=== PATIENT | female | born 1975 | race Caucasian/White ===

== ENCOUNTER 2017-01-20 19:27 | Inpatient (IN) | payer OTHER ==
[~2017-01-20] VITALS: Ht 165.1 cm; Wt 59.7 kg
[2017-01-20 19:38] VITALS: BP 96/60; PULSE 113; RESP 14; TEMP 98.9; O2SAT 98
[2017-01-20] MEDS ORDERED: MORPHINE SULFATE 8 MG/ML INJ IV PUSH ONE (20:45)
[2017-01-20] MEDS ORDERED: ONDANSETRON HCL 4 MG/2 ML VIAL IV PUSH ONE (20:45)
[2017-01-20] MEDS ORDERED: SODIUM CHLOR 0.9% 1000 ML INJ 1,000 ML IV ONE (20:45)
--- NOTE | 2017-01-20 20:46 | PD ---
HPI Chief Complaint: Cold / Flu Symptoms Time Seen by Provider: 20:26 Travel History International Travel<30 days: No Contact w/Intl Traveler<30days: No Traveled to known affect area: No History of Present Illness HPI This 41-year-old female says she been sick for about a week. A week ago she had fairly diffuse myalgias and she started having some fever. She had cannabinoids diffuse headache. She went to an urgent care center. They did a swab for flu which was negative but they did prescribe Tamiflu and she has been taking that. She has one more dose of that to go. She went to her own doctor last Saturday because she is not feeling any better. He did lab work and told that she had a viral illness. They also told her that her liver function tests were elevated and she should not drink alcohol or take any Tylenol. She's been taking Aleve and ibuprofen. In the last few days he is still having some fever. She is having a headache in the right parietal area which is fairly well localized. Before the headache was fairly diffuse. She does not have any numbness or tingling. She does have some photophobia. She has not been having runny nose or cough. PFSH Social History Tobacco Use: No Allergies-Medications (Allergen,Severity, Reaction): Coded Allergies: No Known Allergies (Unverified , 01/20/17) Reported Meds & Prescriptions Reported Meds & Active Scripts Active Reported Advil (Ibuprofen) 200 Mg Tab 200 Mg PO Q6H Aleve (Naproxen Sodium) 220 Mg Tab 220 Mg PO BID PRN Tamiflu (Oseltamivir Phosphate) 75 Mg Cap 75 Mg PO BID Review of Systems General / Constitutional: Positive: Fever Eyes: No: Drainage HENT: No: Sore Throat, Rhinitis Cardiovascular: No: Chest Pain or Discomfort Respiratory: No: Cough, Shortness of Breath Gastrointestinal: No: Vomiting, Diarrhea Genitourinary: No: Dysuria, Nocturia Musculoskeletal: Positive: Myalgias Skin: No Rash, No Itching Neurologic: Positive: Headache, No: Weakness, Dizziness Psychiatric: No: Anxiety, Depression Endocrine: No: Heat Intolerance Hematologic/Lymphatic: No: Easy Bruising Physical Exam Narrative GENERAL: Well-developed female. She is complaining of headache. She arrives with the temperature of 101.5 SKIN: Focused skin assessment warm/dry. HEAD: Atraumatic. Normocephalic. There is no tenderness to palpation of the scalp EYES: Pupils equal and round. No scleral icterus. No injection or drainage. ENT: No nasal bleeding or discharge. Mucous membranes pink and moist. NECK: Trachea midline. No JVD. Her neck is supple CARDIOVASCULAR: Regular rate and rhythm. No murmur appreciated. RESPIRATORY: No accessory muscle use. Clear to auscultation. Breath sounds equal bilaterally. GASTROINTESTINAL: Abdomen soft, non-tender, nondistended. Hepatic and splenic margins not palpable. MUSCULOSKELETAL: No obvious deformities. No clubbing. No cyanosis. No edema. NEUROLOGICAL: Awake and alert. No obvious cranial nerve deficits. Motor grossly within normal limits. Normal speech. PSYCHIATRIC: Appropriate mood and affect; insight and judgment normal. Data Data Last Documented VS Vital Signs Date Time Temp Pulse Resp B/P Pulse Ox O2 Delivery O2 Flow Rate FiO2 01/20/17 23:21 94 16 94/54 97 Room Air 01/20/17 22:27 99.4 Orders Complete Blood Count With Diff (01/20/17 20:35) Comprehensive Metabolic Panel (01/20/17 20:35) Urinalysis - C+S If Indicated (01/20/17 20:35) Westergren Sedimentation Rate (01/20/17 20:35) Ct Brain W/O Iv Contrast(Rout) (01/20/17 20:35) Ed Urine Pregnancytest Poc (01/20/17 20:35) Sodium Chlor 0.9% 1000 Ml Inj (Ns 1000 M (01/20/17 20:45) Ondansetron Inj (Zofran Inj) (01/20/17 20:45) Morphine Inj (Morphine Inj) (01/20/17 20:45) Blood Culture (01/20/17 20:39) Lactic Acid Sepsis Protocol (01/20/17 20:39) Prothrombin Time / Inr (Pt) (01/20/17 20:46) Act Partial Throm Time (Ptt) (01/20/17 20:46) Potassium Chloride (Kcl) (01/20/17 21:15) Lorazepam Inj (Ativan Inj) (01/20/17 22:45) Csf Cell Count + Differential (01/20/17 22:46) Csf Culture And Gram Stain (01/20/17 22:46) Glucose, Csf (01/20/17 22:46) Total Protein, Csf (01/20/17 22:46) Ceftriaxone Inj (Rocephin Inj) (01/20/17 23:30) Admit Order (Ed Use Only) (01/20/17 23:26) Labs Laboratory Tests Test 01/20/17 01/20/17 20:50 22:45 White Blood Count 10.9 TH/MM3 Red Blood Count 3.96 MIL/MM3 Hemoglobin 11.8 GM/DL Hematocrit 34.9 % Mean Corpuscular Volume 88.2 FL Mean Corpuscular Hemoglobin 29.9 PG Mean Corpuscular Hemoglobin 33.9 % Concent Red Cell Distribution Width 13.7 % Platelet Count 251 TH/MM3 Mean Platelet Volume 8.8 FL Neutrophils (%) (Auto) 73.3 % Lymphocytes (%) (Auto) 14.9 % Monocytes (%) (Auto) 10.8 % Eosinophils (%) (Auto) 0.5 % Basophils (%) (Auto) 0.5 % Neutrophils # (Auto) 7.9 TH/MM3 Lymphocytes # (Auto) 1.6 TH/MM3 Monocytes # (Auto) 1.2 TH/MM3 Eosinophils # (Auto) 0.1 TH/MM3 Basophils # (Auto) 0.1 TH/MM3 CBC Comment AUTO DIFF Differential Comment AUTO DIFF CONFIRMED Platelet Estimate NORMAL Platelet Morphology Comment NORMAL Red Cell Morphology Comment NORMAL Erythrocyte Sedimentation Rate 48 mm/hr Prothrombin Time 11.6 SEC Prothromb Time International 1.0 RATIO Ratio Activated Partial 31.2 SEC Thromboplast Time Sodium Level 140 MEQ/L Potassium Level 3.2 MEQ/L Chloride Level 105 MEQ/L Carbon Dioxide Level 25.8 MEQ/L Anion Gap 9 MEQ/L Blood Urea Nitrogen 5 MG/DL Creatinine 0.53 MG/DL Estimat Glomerular Filtration 127 ML/MIN Rate Random Glucose 132 MG/DL Lactic Acid Level 0.9 mmol/L Calcium Level 8.4 MG/DL Total Bilirubin 0.6 MG/DL Aspartate Amino Transf 82 U/L (AST/SGOT) Alanine Aminotransferase 159 U/L (ALT/SGPT) Alkaline Phosphatase 251 U/L Total Protein 6.5 GM/DL Albumin 2.7 GM/DL Urine Color YELLOW Urine Turbidity SLIGHT Urine pH 5.5 Urine Specific Al[place]in 1.008 Urine Protein TRACE mg/dL Urine Glucose (UA) NEG mg/dL Urine Ketones TRACE mg/dL Urine Occult Blood TRACE Urine Nitrite POS Urine Bilirubin NEG Urine Leukocyte Esterase MOD Urine RBC 0-3 /hpf Urine WBC 25-49 /hpf Urine WBC Clumps OCC Urine Squamous Epithelial 0-5 /hpf Cells Urine Bacteria MANY /hpf Urine Mucus OCC /lpf Microscopic Urinalysis Comment CULTURE INDICATED MDM Medical Decision Making Medical Screen Exam Complete: Yes Emergency Medical Condition: Yes Medical Record Reviewed: Yes Differential Diagnosis Differential includes viral illness, meningitis, UTI Narrative Course Patient has been sick for a week and was continuing to have fever and fact her headache is getting more severe over. At this time. A CT scan of the head has been read as negative. Her white count is 10.9. Her sedimentation rate is elevated at 48. AST is 82 with ALT of 159 and albumin 2.7. With the patient having quite a severe headache and fever I felt that a lumbar puncture was indicated. This is been done and the fluid is grossly clear. Urinalysis does show infection. Patient has been given Rocephin possibility of meningitis and this should also cover urinary tract infection. Patient did have quite a severe headache associated with the fever so I felt an LP was indicated regardless of the presence of urinary tract infection Procedures Procedure Narrative Lumbar puncture was discussed with the patient and her . They're in agreement with proceeding with the procedure and signed consent. Patient was positioned in the left lateral recumbent position. The lumbar puncture was performed without complication. The fluid is grossly clear. The opening pressure was 220 Diagnosis Primary Impression: Severe headache Additional Impressions: Fever Urinary tract infection Damien Rivera MD January 20, 2017 20:46
[2017-01-20 20:55] VITALS: BP 115/58; PULSE 107; RESP 20; TEMP 101.5; O2SAT 98
[2017-01-20 21:04] VITALS: BP 101/51; PULSE 102; RESP 20; O2SAT 98
[2017-01-20 21:08] LABS: AUTOMATED NEUTROPHIL # 7.9 TH/MM3 (1.8-7.7); BASOPHIL # 0.1 TH/MM3 (0-0.2); BASOPHIL % 0.5 % (0.0-2.0); EOSINOPHIL # 0.1 TH/MM3 (0-0.4); EOSINOPHIL % 0.5 % (0.0-4.0); HEMATOCRIT 34.9 % (35.0-46.0); LYMPH % 14.9 % (9.0-44.0); LYMPHOCYTE # 1.6 TH/MM3 (1.0-4.8); MEAN CELL VOLUME 88.2 FL (80.0-100.0); MEAN CORPUSCULAR HEMOGLOBIN 29.9 PG (27.0-34.0); MEAN CORPUSCULAR HGB CONC 33.9 % (32.0-36.0); MONO % 10.8 % (0.0-8.0); NEUT % 73.3 % (16.0-70.0); PLATELET COUNT 251 TH/MM3 (150-450); RED BLOOD COUNT 3.96 MIL/MM3 (4.00-5.30); RED CELL DISTRIBUTION WIDTH 13.7 % (11.6-17.2); WHITE BLOOD COUNT 10.9 TH/MM3 (4.0-11.0)
[2017-01-20 21:09] LABS: CHLORIDE 105 MEQ/L (98-107); POTASSIUM 3.2 MEQ/L (3.5-5.1); SODIUM (NA) 140 MEQ/L (136-145)
[2017-01-20 21:12] LABS: ANION GAP 9 MEQ/L (5-15); BICARBONATE 25.8 MEQ/L (21.0-32.0)
[2017-01-20 21:13] LABS: BLOOD UREA NITROGEN 5 MG/DL (7-18)
[2017-01-20] MEDS ORDERED: POTASSIUM CHLORIDE 20 MEQ CONTROLLED RELEASE TAB PO ONE (21:15)
[2017-01-20 21:16] LABS: ALT (GPT) 159 U/L (10-53); AST (GOT) 82 U/L (15-37); GLOMERULAR FILTRATION RATE 127 ML/MIN (>89)
[2017-01-20 21:17] LABS: TOTAL BILIRUBIN ADULT 0.6 MG/DL (0.2-1.0)
[2017-01-20 21:18] LABS: ALKALINE PHOSPHATASE 251 U/L (45-117); HEMO FLAGS AUTO DIFF
[2017-01-20] MEDS ORDERED: OSEL75 PO (21:22)
[2017-01-20] MEDS ORDERED: NAPR220T95 PO (21:22)
[2017-01-20] MEDS ORDERED: IBUP-988 PO (21:22)
[2017-01-20 21:34] VITALS: BP 97/55; PULSE 98; RESP 20; O2SAT 98
[2017-01-20 21:45] LABS: PLATELET ESTIMATE SMEAR NORMAL (NORMAL); PLATELET MORPHOLOGY NORMAL (NORMAL); SCAN/DIFF AUTO DIFF CONFIRMED
[2017-01-20 22:03] LABS: APTT (PATIENT) 31.2 SEC (24.3-30.1); PROTHROMBIN TIME - PATIENT 11.6 SEC (9.8-11.6)
--- NOTE | 2017-01-20 22:19 | RADHPO ---
EXAM DATE/TIME: 01/20/2017 21:56 [facility] COMPARISON: No previous studies available for comparison. INDICATIONS : Right parietal headache with fever for one week. RADIATION DOSE: 62.26 CTDIvol (mGy) MEDICAL HISTORY : None SURGICAL HISTORY : None. ENCOUNTER: Initial ACUITY: 1 week PAIN SCALE: 6/10 LOCATION: Right parietal TECHNIQUE: Multiple contiguous axial images were obtained of the head. Using automated exposure control and adjustment of the mA and/or kV according to patient size, radiation dose was kept as low as reasonably achievable to obtain optimal diagnostic quality images. FINDINGS: CEREBRUM: The ventricles are normal for age. No evidence of midline shift, mass lesion, hemorrha ge or acute infarction. No extra-axial fluid collections are seen. POSTERIOR FOSSA: The cerebellum and brainstem are intact. The 4th ventricle is midline. The cer ebellopontine angle is unremarkable. EXTRACRANIAL: The visualized portion of the orbits is intact. SKULL: The calvaria is intact. No evidence of skull fracture. CONCLUSION: Negative for acute process. Ricki Holloway MD FACR on January 20, 2017 at 22:16 Board Certified Radiologist. This report was verified electronically.
[2017-01-20 22:27] VITALS: BP 102/49; PULSE 97; RESP 20; TEMP 99.4; O2SAT 96
[2017-01-20] MEDS ORDERED: LORazepam 2 MG/ML VIAL IV PUSH ONE (22:45)
[2017-01-20 23:10] LABS: BLOOD, URINE TRACE (NEG); GLUCOSE,URINE NEG (NEG); KETONE, URINE TRACE mg/dL (NEG); PH, URINE 5.5 (5.0-8.5)
[2017-01-20 23:21] VITALS: BP 94/54; PULSE 94; RESP 16; O2SAT 97
[2017-01-20] MEDS ORDERED: cefTRIAXone INJ 2,000 MG in SODIUM CHLORIDE 0.9% INJ 100 ML IV ONE (23:30)
[2017-01-20 23:36] LABS: NITRITE,URINE POS (NEG); URINE COLOR YELLOW (YELLW/STRAW)
[2017-01-20 23:37] LABS: BACTERIA, URINE MANY /hpf; MUCUS URINE OCC /lpf (OCC); RBC, URINE 0-3 /hpf (0-3); SQUAMOUS EPITHELIAL CELL URINE 0-5 /hpf (0-5)
[2017-01-20 23:38] LABS: COMMENT (UR) CULTURE INDICATED; CULTURE IF INDICATED CULTURE INDICATED
[2017-01-20] MEDS ORDERED: PROCHLORPERAZINE INJ 10 MG/2 ML VIAL IV PUSH PRN (23:45)
[2017-01-20] MEDS ORDERED: ACETAMINOPHEN/HYDROcodone 325 MG/5 MG TAB PO PRN (23:45)
[2017-01-20] MEDS ORDERED: ACETAMINOPHEN 325 MG TAB PO PRN (23:45)
[2017-01-20] MEDS ORDERED: BISACODYL 10 MG SUPP RECTAL PRN (23:45)
[2017-01-20] MEDS ORDERED: diphenhydrAMINE HCL 50 MG/ML VIAL IV PUSH PRN (23:45)
[2017-01-20] MEDS ORDERED: ONDANSETRON HCL 4 MG/2 ML VIAL IVP PRN (23:45)
[2017-01-20] MEDS ORDERED: SODIUM CHLORIDE 0.9% FLUSH 10 ML FLUSH IV FLUSH PRN (23:45)
[2017-01-21] VITALS (7 sets, daily range): BP systolic 94–120; BP diastolic 54–81; PULSE 80–106; RESP 18–20; TEMP 97.9–99.2; O2SAT 93–99
[2017-01-21 00:11] LABS: GROSS BLOOD TUBE #1 0 (0); SUPERNATE COLOR TUBE #1 CLEAR (CLEAR); VOLUME TUBE # 1 1.1 ML
[2017-01-21 00:12] LABS: CSF EOSINOPHILS 0 %; CSF LYMPHOCYTES 0 %; CSF MONOCYTES 0 %; CSF NEUTROPHILS 0 %; GROSS BLOOD TUBE #2 0 (0); GROSS BLOOD TUBE #3 0 (0); GROSS BLOOD TUBE #4 0 (0); SUPERNATE COLOR TUBE #2 CLEAR (CLEAR); SUPERNATE COLOR TUBE #3 CLEAR (CLEAR); SUPERNATE COLOR TUBE #4 CLEAR (CLEAR); VOLUME TUBE # 4 1.5 ML; WBC TUBE #4 0 /MM3 (0-10)
[2017-01-21] MEDS: SODIUM CHLOR 0.9% 1000 ML INJ 1,000 ML IV SCH ×2 (00:39→10:36)
[2017-01-21] MEDS: MORPHINE SULFATE 4 MG/ML INJ IV PRN ×2 (04:33→07:36)
[2017-01-21 07:03] LABS: AUTOMATED NEUTROPHIL # 6.6 TH/MM3 (1.8-7.7); BASOPHIL % 0.4 % (0.0-2.0); EOSINOPHIL # 0.1 TH/MM3 (0-0.4); EOSINOPHIL % 1.1 % (0.0-4.0); HEMATOCRIT 30.5 % (35.0-46.0); HEMO FLAGS DIFF FINAL; LYMPH % 15.8 % (9.0-44.0); LYMPHOCYTE # 1.5 TH/MM3 (1.0-4.8); MEAN CELL VOLUME 87.8 FL (80.0-100.0); MEAN CORPUSCULAR HEMOGLOBIN 28.9 PG (27.0-34.0); MEAN CORPUSCULAR HGB CONC 32.9 % (32.0-36.0); MONO % 13.1 % (0.0-8.0); NEUT % 69.6 % (16.0-70.0); PLATELET COUNT 238 TH/MM3 (150-450); RED BLOOD COUNT 3.48 MIL/MM3 (4.00-5.30); RED CELL DISTRIBUTION WIDTH 13.4 % (11.6-17.2); WHITE BLOOD COUNT 9.4 TH/MM3 (4.0-11.0)
[2017-01-21 07:12] LABS: CHLORIDE 109 MEQ/L (98-107); POTASSIUM 3.9 MEQ/L (3.5-5.1); SODIUM (NA) 142 MEQ/L (136-145)
[2017-01-21 07:31] LABS: ALKALINE PHOSPHATASE 189 U/L (45-117); ALT (GPT) 118 U/L (10-53); ANION GAP 6 MEQ/L (5-15); AST (GOT) 47 U/L (15-37); BICARBONATE 27.3 MEQ/L (21.0-32.0); BLOOD UREA NITROGEN 5 MG/DL (7-18); GLOMERULAR FILTRATION RATE 161 ML/MIN (>89); TOTAL BILIRUBIN ADULT 0.4 MG/DL (0.2-1.0)
[2017-01-21] MEDS: SODIUM CHLORIDE 0.9% FLUSH 10 ML FLUSH IV FLUSH SCH ×2 (07:37→21:00)
[2017-01-21] MEDS ORDERED: cefTRIAXone INJ 2,000 MG in SODIUM CHLORIDE 0.9% INJ 100 ML IV SCH (08:00)
--- NOTE | 2017-01-21 08:34 | HHI.HP ---
[facility] Service [facility] Primary Care Physician Non-Staff Admission Diagnosis SIRS, INTRACTABLE HEADACHE Diagnoses: (1) Sepsis Diagnosis: Principal (2) Severe headache Diagnosis: Principal (3) Fever Diagnosis: Principal (4) Urinary tract infection Diagnosis: Principal (5) Hypokalemia Diagnosis: Principal (6) Elevated sedimentation rate Diagnosis: Principal Chief Complaint: Headache Travel History International Travel<30 Days: Yes Contact w/Intl Traveler <30 Da: Yes Name of Country Traveled to: [facility] 12/27/16 Traveled to Known Affected Are: No Sepsis Criteria SIRS Criteria (2 or more): Temp > 100.9 or < 96.8, Heart rate over 90 Sepsis Criteria (SIRS+source): Infect source susp/known Criteria Outcome: Meets sepsis criteria History of Present Illness Written by Mick Lujan, acting as scribe for Dr. Warren on 01/21/17 at 07: 59. 41-year-old female with no chronic medical illnesses presented to hospital because of severe cephalgia and fever. Patient was in a normal state of health until approximate one week ago when she started developing general myalgia, febrile illness. The patient went to urgent care center and was diagnosed with Viral syndrome and started on Tamiflu. Shortly after starting the Tamiflu she developed a headache which is focally located in the superior posterior parietal area. The patient was taking Tylenol in order to relieve the pain but it wasn't controlling it effectively. Patient went to her primary medical doctor's office and had laboratory studies performed and was again told that she had a viral syndrome and was also notified that her liver enzymes were elevated. She was told not to drink any alcohol or use Tylenol product. The patient started using ibuprofen/Aleve without any significant control of her headache. The patient presented to the emergency department because of ineffective outpatient management for headache and fever. Patient has CT scan done of her head which did not indicate any acute abnormality. The patient underwent lumbar puncture which did not indicate any encephalitis. Patient is still with intractable cephalgia, the only thing that relieves the discomfort is morphine at this time. Further studies were performed which did show a elevated sedimentation rate at 48. She denies any jaw claudication, visual disturbances, neck pain, palpable tenderness. She endorsed photophobia. Patient's findings in the ER indicate sepsis syndrome with tachycardia, febrile illness, urinary tract infection. Patient was admitted to the hospital for further evaluation and management. Review of Systems Constitutional: COMPLAINS OF: Fever, DENIES: Diaphoretic episodes, Fatigue, Weight gain, Weight loss, Chills, Dizziness, Change in appetite, Night Sweats Eyes: COMPLAINS OF: Photosensitivity, DENIES: Blurred vision, Diplopia, Eye inflammation, Eye pain, Vision loss, Double Vision Ears, nose, mouth, throat: COMPLAINS OF: Hoarseness, DENIES: Vertigo, Nasal discharge, Throat pain, Ear Pain, Running Nose, Sinus Pain Respiratory: DENIES: Apneas, Cough, Snoring, Wheezing, Hemoptysis, Sputum production, Shortness of breath Cardiovascular: DENIES: Chest pain, Palpitations, Syncope, Dyspnea on Exertion , Lower Extremity Edema, Orthopnea Gastrointestinal: DENIES: Abdominal pain, Black stools, Bloody stools, Constipation, Diarrhea, Nausea, Vomiting, Difficulty Swallowing, Anorexia Genitourinary: DENIES: Urinary frequency, Urinary incontinence, Urgency, Hematuria, Dysuria, Nocturia Neurologic: COMPLAINS OF: Headache, DENIES: Abnormal gait, Localized weakness , Paresthesias, Seizures, Speech Problems, Tremor, Poor Balance Past Family Social History Past Medical History No chronic medical illnesses Past Surgical History No previous surgeries Reported Medications Reported Meds & Active Scripts Active Reported Advil (Ibuprofen) 200 Mg Tab 200 Mg PO Q6H Aleve (Naproxen Sodium) 220 Mg Tab 220 Mg PO BID PRN Tamiflu (Oseltamivir Phosphate) 75 Mg Cap 75 Mg PO BID Allergies: Coded Allergies: No Known Allergies (Unverified , 01/20/17) Family History Reviewed and significant for aunt with breast cancer, mother with cervical cancer, father with metastatic cancer Social History Patient denies any tobacco, alcohol or illicit drugs. She is here with her from [place]. They were supposed to fly back tomorrow. Physical Exam Vital Signs Vital Signs Date Time Temp Pulse Resp B/P Pulse Ox O2 Delivery O2 Flow Rate FiO2 01/21/17 04:53 18 01/21/17 04:47 01/21/17 01:10 99.0 94 20 94/54 99 01/21/17 00:50 98.8 103 18 99/63 96 01/21/17 00:30 80 20 99/56 99 01/20/17 23:21 94 16 94/54 97 Room Air 01/20/17 22:27 99.4 97 20 102/49 96 01/20/17 21:34 98 20 97/55 98 01/20/17 21:20 20 01/20/17 21:13 102 20 98 Room Air 01/20/17 21:04 102 20 101/51 98 Room Air 01/20/17 20:55 101.5 107 20 115/58 98 01/20/17 19:38 98.9 113 14 96/60 98 Room Air Physical Exam GENERAL: Well-developed, well-nourished, in no acute distress. alert and orientated HEENT: Head is normocephalic without any lesions or masses noted. Facial features are symmetric. Eyes: Pupils equal round reactive to light. Extraocular muscles are intact. Conjunctivae were clear. Oropharyngeal: Pharynx without any erythema edema. Tongue is midline without deviation. Buccal mucosa is moist without any masses or lesions NECK: Supple without any masses. Trachea midline no deviation. No JVD, no bruits are appreciated CARDIAC: Regular rhythm, regular rate. S1/S2 are heard. No murmurs gallops or rubs. LUNGS: Clear to auscultation bilaterally. No wheeze, rhonchi or rales. No use of accessory muscles on inspiration or expiration. ABDOMEN: Soft, nontender. Nondistended. Bowel sounds heard in all 4 quadrants. No organomegaly or masses. Negative rebound, negative guarding EXTREMITIES: No edema, pulses are equal bilaterally. No cyanosis or clubbing NEUROLOGY: Patient very tearful, affect appears appropriate. Cranial nerves II through XII grossly intact. Muscle strength 5/5 in upper and lower extremities bilaterally. Deep tendon reflexes are 2+ in upper and lower extremities bilaterally. Laboratory Laboratory Tests Test 01/20/17 01/20/17 01/20/17 01/21/17 20:50 22:45 23:11 05:45 White Blood Count 10.9 9.4 Red Blood Count 3.96 3.48 Hemoglobin 11.8 10.1 Hematocrit 34.9 30.5 Mean Corpuscular Volume 88.2 87.8 Mean Corpuscular Hemoglobin 29.9 28.9 Mean Corpuscular Hemoglobin 33.9 32.9 Concent Red Cell Distribution Width 13.7 13.4 Platelet Count 251 238 Mean Platelet Volume 8.8 9.0 Neutrophils (%) (Auto) 73.3 69.6 Lymphocytes (%) (Auto) 14.9 15.8 Monocytes (%) (Auto) 10.8 13.1 Eosinophils (%) (Auto) 0.5 1.1 Basophils (%) (Auto) 0.5 0.4 Neutrophils # (Auto) 7.9 6.6 Lymphocytes # (Auto) 1.6 1.5 Monocytes # (Auto) 1.2 1.2 Eosinophils # (Auto) 0.1 0.1 Basophils # (Auto) 0.1 0.0 CBC Comment AUTO DIFF DIFF FINAL Differential Comment AUTO DIFF CONFIRMED Platelet Estimate NORMAL Platelet Morphology Comment NORMAL Red Cell Morphology Comment NORMAL Erythrocyte Sedimentation Rate 48 Prothrombin Time 11.6 Prothromb Time International 1.0 Ratio Activated Partial 31.2 Thromboplast Time Sodium Level 140 142 Potassium Level 3.2 3.9 Chloride Level 105 109 Carbon Dioxide Level 25.8 27.3 Anion Gap 9 6 Blood Urea Nitrogen 5 5 Creatinine 0.53 0.43 Estimat Glomerular Filtration 127 161 Rate Random Glucose 132 99 Lactic Acid Level 0.9 Calcium Level 8.4 7.7 Total Bilirubin 0.6 0.4 Aspartate Amino Transf 82 47 (AST/SGOT) Alanine Aminotransferase 159 118 (ALT/SGPT) Alkaline Phosphatase 251 189 Total Protein 6.5 5.3 Albumin 2.7 1.9 Urine Color YELLOW Urine Turbidity SLIGHT Urine pH 5.5 Urine Specific [place] 1.008 Urine Protein TRACE Urine Glucose (UA) NEG Urine Ketones TRACE Urine Occult Blood TRACE Urine Nitrite POS Urine Bilirubin NEG Urine Leukocyte Esterase MOD Urine RBC 0-3 Urine WBC 25-49 Urine WBC Clumps OCC Urine Squamous Epithelial 0-5 Cells Urine Bacteria MANY Urine Mucus OCC Microscopic Urinalysis Comment CULTURE INDICATED CSF Volume (Tube 1) 1.1 CSF Supernatant Color (tube 1) CLEAR CSF Gross Blood (Tube 1) 0 CSF Volume (Tube 2) 1.0 CSF Supernatant Color (tube 2) CLEAR CSF Gross Blood (Tube 2) 0 CSF Volume (Tube 3) 1.0 CSF Supernatant Color (tube 3) CLEAR CSF Gross Blood (Tube 3) 0 CSF Volume (Tube 4) 1.5 CSF Supernatant Color (tube 4) CLEAR CSF Gross Blood (Tube 4) 0 CSF WBC (Tube 4) 0 CSF RBC (Tube 4) 0 CSF Neutrophils 0 CSF Lymphocytes 0 CSF Monocytes 0 CSF Eosinophils 0 CSF Basophils 0 CSF Glucose 63 CSF Total Protein 18.8 Date/Time Procedure Status Source Growth 01/20/17 23:11 Gram Stain - Final Resulted Cerebral Spinal Fluid Lumbar Puncture 01/20/17 23:11 CSF Culture Resulted Cerebral Spinal Fluid Lumbar Puncture Pending 01/20/17 22:45 Urine Culture Received Urine Clean Catch Pending 01/20/17 20:50 Aerobic Blood Culture Received Blood Peripheral Pending 01/20/17 20:50 Anaerobic Blood Culture Received Blood Peripheral Pending Result Diagram: 01/21/17 0545 01/21/1745 Imaging Last Impressions Head CT 01/20/172034 Signed Impressions: Service Date/Time: Friday, January 20, 2017 21:56 - CONCLUSION: Negative for acute process. Ricki Holloway MD FACR Septic Shock Reassessment Heart: Other (tachycardic) Lungs: Clear Skin: Warm, Moist Peripheral Pulses: Bounding Right Radial Bounding Left Radial Capillary Refill: Brisk, <2 seconds Assessment and Plan Problem List: (1) Sepsis ICD Code: A41.9 Status: Acute Plan: Patient meets criteria at this time with febrile illness, tachycardia, urinary tract infection. Fevers with persistent headaches. CSF analysis so far unremarkable. Patient currently on IV Rocephin, meningitis dose for now Blood cultures, urine culture, CSF culture are currently pending (2) Severe headache ICD Code: R51 Status: Acute Plan: Intractable cephalgia is time only relieved with IV morphine CT scan does not indicate any acute abnormality or intracranial bleed Lumbar puncture was performed which findings do not indicate any acute encephalitis Mildly elevated sedimentation rate, significant C-Reactive Protein elevation Could be secondary to Tamiflu use, which literature does indicate greater than 10% adverse reaction with cephalgia, discontinue Tamiflu. Flu test was reportedly neg Obtain MRI studies to rule out other possibilities with mass, vascular abnormalities --Consult Neurology --MRI/MRA/MRV were negative for any acute abnormality --Discussed with Neurology, who indicated to give Decadron 10 mg one time dose (3) Fever ICD Code: R50.9 Status: Acute Plan: Unknown etiology at this time, could be secondary to viral etiology, urinary tract infection, temporal arteritis Continue ibuprofen for fever management (4) Urinary tract infection ICD Code: N39.0 Status: Acute Plan: Patient's urinalysis with positive nitrite, many bacteria, 2549 daily CBCs Patient is on Rocephin at this time will continue that Await urine culture for appropriate antibiotics (5) Hypokalemia ICD Code: E87.6 Status: Acute Plan: Corrected at this time, continue monitor and replete as needed (6) Elevated sedimentation rate ICD Code: R70.0 Status: Acute Plan: Patient symptoms are not convincing for temporal arteritis, will obtain C -reactive protein for further delineation (7) Elevated liver enzymes ICD Code: R74.8 Status: Acute Plan: Without any bilirubin elevation, Unknown etiology this time, could be viral in nature, secondary to recent Tylenol use We'll obtain viral hepatitis panel, mono testing Obtain liver ultrasound Continue to monitor liver enzymes Assessment and Plan This note was transcribed by scribe [Mick Lujan]. I, Dr. Issac Warren personally performed the history, physical exam, and medical decision making; and confirmed the accuracy of the information in the transcribed note. Authenticated by Dr. Issac Warren on 01/21/17 at 10:08. Discussed Condition With Neurology, Dr. Srivastava. Physician Certification 2 Midnight Certification Type: Admission for Inpatient Services Order for Inpatient Services The services are ordered in accordance with Medicare regulations or non- Medicare payer requirements, as applicable. In the case of services not specified as inpatient-only, they are appropriately provided as inpatient services in accordance with the 2-midnight benchmark. Estimated LOS (days): 2 days is the estimated time the patient will need to remain in the hospital, assuming treatment plan goals are met and no additional complications. Post-Hospital Plan: Not yet determined Problem Qualifiers (1) Sepsis: Qualified Code: A41.9 - Sepsis, due to unspecified organism (2) Fever: Qualified Code: R50.9 - Fever, unspecified fever cause (3) Urinary tract infection: Qualified Code: N39.0 - Urinary tract infection without hematuria, site unspecified Mick Lujan January 21, 2017 08:34 Issac Warren MD January 21, 2017 10:09
[2017-01-21] MEDS ORDERED: OSELTAMIVIR PHOSPHATE 75 MG CAP PO SCH (09:00)
[2017-01-21] MEDS: PANTOPRAZOLE SOD 40 MG DELAYED RELEASE TAB PO SCH (10:43)
--- NOTE | 2017-01-21 11:07 | MB ---
cc: QUIANA HASTINGS M.D. DATE OF CONSULTATION: 01/21/2017 HISTORY OF PRESENT ILLNESS A 41-year-old right-handed woman who has really been very healthy and then about a week ago she developed a fever, aches and pains all over, temperature to about 102 and after 2 days of that she went to the ER and nasal swab was negative for the flu, which she was put on Tamiflu and some time not long after that she started to have a right parietal headache. It is sharp and then no headaches, the sharp will come on for about a minute and then maybe 30 seconds without a headache and it has been pretty progressive throughout the week. She had a spinal tap yesterday that was normal. She has not had any stiff neck or sudden hearing loss in the right year or earache, no nausea, vomiting, diarrhea or sore throat. Her aches and pains went away after about a day or two but the headache has been progressive throughout the week and thus came into the hospital. SOCIAL HISTORY She is not a smoker or a drinker. She lives with her . FAMILY HISTORY Positive for cancer. Negative for seizure, stroke. REVIEW OF SYSTEMS No history of hypertension, diabetes, hypercholesterolemia, SC, CABG, cardiac arrhythmia, renal, hepatitic or pulmonary disease, thyroid disease, lupus, ulcer, cancer, seizure or stroke. MEDICATION Advil and Aleve, and the Tamiflu. The Advil helped the headache for about 3 hours. ALLERGIES NO KNOWN DRUG ALLERGIES. PHYSICAL EXAMINATION VITAL SIGNS: T-max is 101.5 yesterday, 99.2. NECK: There were no carotid bruits. HEART: Heart was regular rhythm. I do not detect a murmur. There were no ocular bruits. TMs were clear bilaterally. Hearing was intact to finger rub bilaterally. Pupils are equal. Disks I cannot see very well on the right side but what I did see looked sharp. Visual conner are full. Extraocular muscles intact without nystagmus. Face is symmetric with normal sensation. Tongue was midline. There is no drift. She had normal strength in upper and lower extremities bilaterally. DTRs 1+ symmetric throughout. Toes are downgoing bilaterally. Pinprick is intact throughout. There is no asterixis. She is awake, alert and oriented x3. Speech is fluent, she is not Aphasic. Neck is supple. Brudzinski sign was negative. LABORATORY DATA Spinal tap was normal with normal glucose, protein, no white cells, no red cells, clear. Hepatitis screen is pending. UA showed 25-49 white cells, moderate leukocyte esterase, some ketones. Basic metabolic profile was normal. LFTs are elevated. Her ALT to 159, AST to 82. CRP is 12. Albumin is low at 1.9. CBC is normal. Sed rate is 48. She had a CAT scan of her brain that was negative. IMPRESSION/PLAN Right-sided headache, some low albumin, increased LFTs, some recent aches and pains, elevated sed rate. I think probably more of a viral syndrome. We are going to do a MRI of the brain, MR venogram of the brain and MRA [id number]. If that all looks fine I think we could start her on some steroids. Consider having ID see her. Check some additional blood work such as an JENNIFER, RPR, but I think overall she looked well neurologically but does have this headache which probably will improve with some steroids. There is no post LP headache at this time, as I asked her about that. Also check a CPK. MD IRIS Davila/RIDDHI /10:21 AM /10:46 AM
[2017-01-21 11:18] LABS: BETA HCG QUANT LESS THAN 1 MIU/ML (0-5)
[2017-01-21 11:34] LABS: CREATINE KINASE 57 U/L (26-192)
[2017-01-21] MEDS ORDERED: ONDANSETRON HCL 4 MG/2 ML VIAL IVP PRN (13:08)
[2017-01-21 13:54] LABS: FREE T4 1.57 NG/DL (0.76-1.46); TOTAL PROTEIN SPE 5.2 GM/DL (6.0-7.6)
[2017-01-21 13:57] LABS: RHEUMATOID FACTOR TRIGGER LESS THAN 10.0 IU/ML (0.0-14.9)
--- NOTE | 2017-01-21 14:00 | RADHPO ---
EXAM DATE/TIME: 01/21/2017 11:09 [facility] COMPARISON: No previous studies available for comparison. INDICATIONS : CVA. MEDICAL HISTORY : None. SURGICAL HISTORY : None. ENCOUNTER: Initial ACUITY: 1 week PAIN SCORE: 8/10 LOCATION: Right distal frontal Please note a normal MRA of the brain does not entirely exclude the possibility of a small aneurysm, nor the possibility of distal intracranial vessel disease. TECHNIQUE: 3D time of flight MRA was performed. Source images, multiplanar STS MIP, and 3D volume MIP reconstru ctions were reviewed. FINDINGS: There is excellent visualization of the major intracranial arteries out to the second-order branch ve ssels. There is no evidence for aneurysm, vessel truncation or stenosis, and no evidence for vascula r malformation. CONCLUSION: 1. Negative examination. Mina Holloway MD on January 21, 2017 at 13:56 Board Certified Radiologist. This report was verified electronically.
--- NOTE | 2017-01-21 14:03 | RADHPO ---
EXAM DATE/TIME: 01/21/2017 11:09 COMPARISON: MRI BRAIN W & W/O CONTRAST, January 21, 2017, 11:09. INDICATIONS : CVA. CONTRAST: 12 cc Omniscan (gadodiamide) IV MEDICAL HISTORY : None. SURGICAL HISTORY : None. ENCOUNTER: Initial ACUITY: 1 week PAIN SCORE: 9/10 LOCATION: Right distal FINDINGS: The superior sagittal sinus is widely patent. The cortical veins are patent. Posteriorly, there is an anatomic variant with the straight sinus draining into the left transverse sinus. The superior sagit ameena sinus drains via the right transverse sinus. The sigmoid sinuses are patent bilaterally. The internal cerebral veins are patent. The straight sinus is patent. CONCLUSION: 1. Anatomic variant as above. No definite findings to indicate sinus thrombosis identified. Mina Holloway MD on January 21, 2017 at 13:58 Board Certified Radiologist. This report was verified electronically.
--- NOTE | 2017-01-21 14:23 | RADHPO ---
EXAM DATE/TIME: 01/21/2017 11:09 [facility] COMPARISON: No previous studies available for comparison. INDICATIONS : CVA. CONTRAST: 12 cc Omniscan (gadodiamide) IV MEDICAL HISTORY : None. SURGICAL HISTORY : None. ENCOUNTER: Initial ACUITY: 1 week PAIN SCORE: 9/10 LOCATION: Right cranial frontal TECHNIQUE: Multiplanar, multisequence MRI of the brain was performed both prior to and following the administrat ion of paramagnetic contrast. FINDINGS: There is no restricted diffusion evident. There are scattered minimal areas of high signal intensity in the periventricular white matter in a nonspecific fashion. There is a small lacunar infarct in t he basal ganglia on the right side. On the gradient echo acquisitions there is no parenchymal hemorrhage. There is no abnormal contrast enhancement. There is no venous occlusion. CONCLUSION: 1. Minimal old ischemic changes, negative for an acute process. 2. There is no abnormal contrast enhancement. Ricki Holloway MD FACR on January 21, 2017 at 13:12 Board Certified Radiologist. This report was verified electronically.
[2017-01-21] MEDS ORDERED: GADODIAMIDE PF 287 MG/ML 5 ML VIAL (for RAD MRI) IV ONE (15:48)
--- NOTE | 2017-01-21 15:50 | RADHPO ---
EXAM DATE/TIME: 01/21/2017 15:12 [facility] COMPARISON: No previous studies available for comparison. INDICATIONS : Increased lab values. MEDICAL HISTORY : . Headaches. UTIs. Fever. Nausea. Vomiting. SURGICAL HISTORY : ENCOUNTER: Initial ACUITY: 1 week PAIN SCORE: 2/10 LOCATION: Bilateral upper quadrant MEASUREMENTS: LIVER: 16.3 cm length COMMON DUCT: 5 mm RIGHT KIDNEY: 13.1 x 5.6 x 4.8 cm SPLEEN: 10.6 cm length FINDINGS: LIVER: Normal echotexture without focal lesion or ductal dilatation. The portal system is patent. There is n o ascites. COMMON DUCT: No intraluminal mass or stone visualized. GALLBLADDER: There is some debris in the gallbladder suggestive of sludge versus tiny stones. There is thickening of the gallbladder wall 5 mm. There is a mild amount of fluid around the gallbladder. PANCREAS: The visualized portions are within normal limits. RIGHT KIDNEY: No evidence of hydronephrosis. There is a possible nonobstructing stone lower pole measuring 6 mm. Th ere is a cyst in the midpole measuring 1 cm. SPLEEN: No focal lesion. CONCLUSION: 1. There is some debris and/or tiny stones in the gallbladder. There is gallbladder wall thickening a nd a trace of fluid around the gallbladder. These findings can be seen with either acute or chronic c holecystitis. Recommend correlation with patient's physical exam, clinical exam and laboratory zoey bhatia. 2. Small nonobstructing stone right kidney measuring 6 mm. 3. Small benign right renal cyst. Gigi Lobo MD on January 21, 2017 at 15:45 Board Certified Radiologist. This report was verified electronically.
[2017-01-21] MEDS ORDERED: DEXAMETHASONE SOD PHOS 4 MG/ML VIAL IV PUSH ONE (16:15)
[2017-01-21] MEDS ORDERED: IBUPROFEN 400 MG TAB PO PRN (17:30)
[2017-01-21] MEDS: cefTRIAXone INJ 2,000 MG in SODIUM CHLORIDE 0.9% INJ 100 ML IV SCH (20:00)
[2017-01-22] VITALS: BP 110/75; PULSE 76; RESP 20; TEMP 96.6; O2SAT 98
[2017-01-22] MEDS: SODIUM CHLOR 0.9% 1000 ML INJ 1,000 ML IV SCH ×2 (00:24→08:27)
[2017-01-22 06:53] LABS: AUTOMATED NEUTROPHIL # 7.6 TH/MM3 (1.8-7.7); BASOPHIL % 0.2 % (0.0-2.0); EOSINOPHIL % 0.2 % (0.0-4.0); LYMPH % 12.8 % (9.0-44.0); LYMPHOCYTE # 1.2 TH/MM3 (1.0-4.8); MEAN CELL VOLUME 88.5 FL (80.0-100.0); MEAN CORPUSCULAR HEMOGLOBIN 29.6 PG (27.0-34.0); MEAN CORPUSCULAR HGB CONC 33.5 % (32.0-36.0); MONO % 1.7 % (0.0-8.0); NEUT % 85.1 % (16.0-70.0); PLATELET COUNT 328 TH/MM3 (150-450); RED BLOOD COUNT 3.95 MIL/MM3 (4.00-5.30); RED CELL DISTRIBUTION WIDTH 14.1 % (11.6-17.2)
[2017-01-22 07:04] LABS: HEMO FLAGS DIFF FINAL
[2017-01-22 07:13] LABS: CHLORIDE 109 MEQ/L (98-107); POTASSIUM 3.9 MEQ/L (3.5-5.1); SODIUM (NA) 142 MEQ/L (136-145)
[2017-01-22 07:17] LABS: ANION GAP 7 MEQ/L (5-15); BICARBONATE 26.2 MEQ/L (21.0-32.0); BLOOD UREA NITROGEN 7 MG/DL (7-18)
[2017-01-22 07:20] LABS: ALT (GPT) 109 U/L (10-53); AST (GOT) 32 U/L (15-37); GLOMERULAR FILTRATION RATE 235 ML/MIN (>89)
[2017-01-22 07:21] LABS: TOTAL BILIRUBIN ADULT 0.3 MG/DL (0.2-1.0)
[2017-01-22 07:23] LABS: ALKALINE PHOSPHATASE 208 U/L (45-117)
[2017-01-22 08:00] VITALS: BP 123/79; PULSE 64; RESP 20; TEMP 97; O2SAT 100
--- NOTE | 2017-01-22 08:12 | HHI.PR ---
Objective Vital Signs Date Time Temp Pulse Resp B/P Pulse Ox O2 Delivery O2 Flow Rate FiO2 01/22/17 00:00 96.6 76 20 110/75 98 01/21/17 20:00 98.2 87 20 120/76 95 01/21/17 16:00 97.9 86 18 116/74 97 01/21/17 12:00 98.4 90 18 115/74 93 I/O 01/21/17 01/21/17 01/21/17 01/22/17 01/22/17 01/22/17 07:00 15:00 23:00 07:00 15:00 23:00 Intake Total 400 ml 120 ml 1476 ml 680 ml Balance 400 ml 120 ml 1476 ml 680 ml Intake Oral 120 ml 480 ml IV Total 400 ml 1476 ml 200 ml # Voids 0 4 3 # Bowel Movements 0 Result Diagram: 01/22/17 0555 01/22/17 0555 Assessment and Plan Assessment and Plan imp i dw nurse back gone after steroids mri/a/v nl labs neg i ordered so far ok by me to dc i think viral syndrome defer to med team if they think needs id involved Juan Carlos Srivastava MD January 22, 2017 08:12
[2017-01-22] MEDS: PANTOPRAZOLE SOD 40 MG DELAYED RELEASE TAB PO SCH (08:26)
[2017-01-22] MEDS: SODIUM CHLORIDE 0.9% FLUSH 10 ML FLUSH IV FLUSH SCH (08:27)
[2017-01-22] MEDS: cefTRIAXone INJ 2,000 MG in SODIUM CHLORIDE 0.9% INJ 100 ML IV SCH (08:27)
[2017-01-22 08:29] LABS: ALPHA 1 GLOBULIN 0.33 GM/DL (0.11-0.29); BETA GLOBULINS (SPE) 0.69 GM/DL (0.53-1.03)
[2017-01-22 09:44] LABS: RAPID PLASMA REAGIN SCREEN NON-REACTIVE (NON-REACTVE)
--- NOTE | 2017-01-22 10:08 | HHI.PR ---
Subjective Remarks Patient reports she is feeling much better today. Headache have resolved since receiving the steroid. No nausea or vomiting. No abdominal pain. No fevers or chills. She is anxious to go home. I had a long discussion with the patient and her at bedside regarding the need for follow-up. They will fly back home to [place] tomorrow. Objective Vitals Vital Signs Date Time Temp Pulse Resp B/P Pulse Ox O2 Delivery O2 Flow Rate FiO2 01/22/17 08:00 97.0 64 20 123/79 100 01/22/17 00:00 96.6 76 20 110/75 98 01/21/17 20:00 98.2 87 20 120/76 95 01/21/17 16:00 97.9 86 18 116/74 97 01/21/17 12:00 98.4 90 18 115/74 93 I/O 01/21/17 01/21/17 01/21/17 01/22/17 01/22/17 01/22/17 06:59 14:59 22:59 06:59 14:59 22:59 Intake Total 400 ml 120 ml 1476 ml 680 ml Balance 400 ml 120 ml 1476 ml 680 ml Intake Oral 120 ml 480 ml IV Total 400 ml 1476 ml 200 ml # Voids 0 4 3 # Bowel Movements 0 Result Diagram: 01/22/17 0555 01/22/17 0555 Imaging Last Impressions Head Magnetic Resonance Angiography 01/21/17 1021 Signed Impressions: Service Date/Time: Saturday, January 21, 2017 11:09 - CONCLUSION: 1. Negative examination. Mina Holloway MD Liver Ultrasound 01/21/17 0000 Signed Impressions: Service Date/Time: Saturday, January 21, 2017 15:12 - CONCLUSION: 1. There is some debris and/or tiny stones in the gallbladder. There is gallbladder wall thickening and a trace of fluid around the gallbladder. These findings can be seen with either acute or chronic cholecystitis. Recommend correlation with patient's physical exam, clinical exam and laboratory guidance. 2. Small nonobstructing stone right kidney measuring 6 mm. 3. Small benign right renal cyst. Gigi Lobo MD Head/Brain Mag Res Venography 01/21/17 0000 Signed Impressions: Service Date/Time: Saturday, January 21, 2017 11:09 - CONCLUSION: 1. Anatomic variant as above. No definite findings to indicate sinus thrombosis identified. Mina Holloway MD Head CT 01/20/172034 Signed Impressions: Service Date/Time: Friday, January 20, 2017 21:56 - CONCLUSION: Negative for acute process. Ricki Holloway MD FACR Objective Remarks GENERAL: This is a well-nourished, well-developed patient, in no apparent distress. CARDIOVASCULAR: Normal rate and regular rhythm without murmurs, gallops, or rubs. RESPIRATORY: Good respiratory efforts. Breath sounds equal and clear to auscultation bilaterally. GASTROINTESTINAL: Abdomen soft, non-tender, non-distended. Normal active bowel sounds MUSCULOSKELETAL: Extremities without cyanosis, or edema. NEURO: Alert & Oriented x4 to person, place, time, situation. Moves all ext x4 PSYCH: Appropriate mood and affect. A/P Problem List: (1) Sepsis ICD Code: A41.9 Status: Acute Plan: Patient meets criteria on admission with febrile illness, tachycardia, urinary tract infection. After initial workup, although she has a urinary tract infection. Most of her symptoms are likely due to a viral syndrome. Patient quickly improved and her symptoms resolved. Preliminary blood cultures negative. Urine culture grew Escherichia coli. She is discharge on cefuroxime to complete the course of treatment for the UTI. CSF culture is negative so far. (2) Severe headache ICD Code: R51 Status: Acute Plan: Intractable cephalgia is time only relieved with IV morphine. ' - Appreciate neurologist input. All initial workup unremarkable. Agree with neurology, likely a viral syndrome. Headache completely resolved after steroid. Could be secondary to Tamiflu use, which literature does indicate greater than 10% adverse reaction with cephalgia, discontinue Tamiflu. Flu test was reportedly neg --MRI/MRA/MRV were negative for any acute abnormality (3) Fever ICD Code: R50.9 Status: Acute Plan: Resolved, could be secondary to viral etiology, urinary tract infection Continue ibuprofen as needed. (4) Urinary tract infection ICD Code: N39.0 Status: Acute Plan: Patient's urinalysis with positive nitrite, many bacteria, 2549 daily CBCs Urine culture grew Escherichia coli. She has been on high-dose Rocephin. - Okay to discharge on cefuroxime to complete course of treatment. (5) Hypokalemia ICD Code: E87.6 Status: Acute (6) Elevated sedimentation rate ICD Code: R70.0 Status: Acute (7) Elevated liver enzymes ICD Code: R74.8 Status: Acute Plan: Ultrasound of the abdomen shows gallbladder sludge and/or tiny stones. No evidence of obstructions. Bilirubin unremarkable. Hepatitis profile is pending. I advised the patient this test can be followed outpatient by her primary care physician. She is advised to have them request her records within about a week. Discharge Planning Discharge home in good condition Diet: Regular as tolerated Activities: Regular as tolerated Meds: Per med rec Follow-up with: PCP. Discussed discharge planning extensively with the patient and her at bedside. They are advised to request her records and follow-up outpatient. Problem Qualifiers (1) Sepsis: Qualified Code: A41.9 - Sepsis, due to unspecified organism (2) Fever: Qualified Code: R50.9 - Fever, unspecified fever cause (3) Urinary tract infection: Qualified Code: N39.0 - Urinary tract infection without hematuria, site unspecified Issac Warren MD January 22, 2017 10:08
[2017-01-22] MEDS ORDERED: CEFU1TAB20 PO (10:10)
--- NOTE | 2017-01-22 10:11 | HHI.DCPOC ---
Discharge Care Plan Diagnosis: (1) Fever (2) Hypokalemia (3) Severe headache (4) Elevated liver enzymes (5) Urinary tract infection Goals to Promote Your Health * To prevent worsening of your condition and complications * To maintain your health at the optimal level Directions to Meet Your Goals Take your medications as prescribed Follow your dietary instruction Follow activity as directed Keep your appointments as scheduled Take your immunizations and boosters as scheduled If your symptoms worsen call your PCP, if no PCP go to Urgent Care Center or Emergency Room Smoking is Dangerous to Your Health. Avoid second hand smoke Call the 24-hour hour crisis hotline for domestic abuse at Issac Warren MD January 22, 2017 10:11
[2017-01-23 14:26] LABS: ANA SCREEN NEG (NEG)
== END 2017-01-22 11:00 | disposition home or self-care (01) | DRG 872 ==
LOC: PHED 19:27 → PHEDA 23:28 → PH3A 01-21 00:50
PROVIDERS: ADMIT Family Medicine; ATTEND Family Medicine
PROC: 009U3ZX Drainage of Spinal Canal, Percutaneous Approach, Diagnostic (ICD-10-PCS; principal; 2017-01-20)
DX: A41.9 Sepsis, unspecified organism (principal); N39.0 Urinary tract infection, site not specified; R51 Headache; E87.6 Hypokalemia; R70.0 Elevated erythrocyte sedimentation rate; B34.9 Viral infection, unspecified
CPT/HCPCS: 62270; 70450; 70544; 70546; 70553; 76705; 80053; 80074; 81001; 82550; 82607; 82945; 83605; 84157; 84165; 84425; 84439; 84443; 84702; 84703; 85025; 85610; 85652; 85730; 86038; 86140; 86308; 86430; 86592; 87040; 87070; 87077; 87086; 87186; 87205; 89051; 96361; 96374; 96375; A9579; J0696; J1100; J2060; J2270; J2405; J7030